=== PATIENT | male | born 1955 | race Two or more races ===

== ENCOUNTER 2024-01-18 02:37 | Emergency (ER) | payer MEDICARE, OTHER ==
[~2024-01-18] VITALS: Ht 175.3 cm; Wt 112.0 kg
[~2024-01-18 02:37] MED LIST: ASPI-1450 PO
[2024-01-18 02:44] VITALS: BP 140/86; PULSE 88; RESP 16; TEMP 98.3
[2024-01-18 03:04] LABS: COVID AG,FIA SOURCE NASAL SWAB
[2024-01-18 03:29] LABS: INFLUENZA TYPE A NEGATIVE FOR TYPE A (NEGATIVE); INFLUENZA TYPE B NEGATIVE FOR TYPE B (NEGATIVE); SARS-COV2 (COVID) ANTIGEN,FIA Negative (Negative)
[2024-01-18] MEDS ORDERED: AZIT250T9 PO (05:43)
[2024-01-18] MEDS ORDERED: BENZ-227 PO (05:43)
[2024-01-18] MEDS: DEXAMETHASONE 4 MG TABLET PO ONE (05:46)
== END 2024-01-18 06:13 | disposition home or self-care (01) ==
LOC: EMS 02:39
DX: J40 Bronchitis, not specified as acute or chronic (principal); R05.9 Cough, unspecified; I10 Essential (primary) hypertension; D68.9 Coagulation defect, unspecified; Z20.822 Contact with and (suspected) exposure to COVID-19
CPT/HCPCS: 99284; 71045; 87426; 87804; J8540

== ENCOUNTER 2024-05-11 04:29 | Emergency (ER) | payer MEDICARE ==
[~2024-05-11] VITALS: Ht 175.3 cm; Wt 99.1 kg
[~2024-05-11 04:29] MED LIST changes: +BENZ-227 PO
[2024-05-11 04:34] VITALS: TEMP 98.4
[2024-05-11 05:21] LABS: BASOPHILS % (AUTO) 1.3 % (0.0-2.0); EOSINOPHILS % (AUTO) 0.6 % (1.0-6.0); HEMATOCRIT 44.8 % (41-53); HEMOGLOBIN 14.7 g/dL (13.5-17.5); LYMPHOCYTES # (AUTO) 2.1 K/uL (1.0-4.8); LYMPHOCYTES % (AUTO) 17.8 % (22.0-44.0); MEAN CORPUSCULAR HEMOGLOBIN 27.6 pg (26.0-34.0); MEAN CORPUSCULAR HGB CONC 32.9 G/dL (31.0-37.0); MEAN CORPUSCULAR VOLUME 84 fL (80-100); MONOCYTES % (AUTO) 8.3 % (2.0-9.0); NEUTROPHILS # (AUTO) 8.7 K/uL (1.8-7.7); PLATELET COUNT (AUTO) 166 K/uL (150-450); RED BLOOD CELL COUNT(AUTO) 5.34 MIL/uL (4.50-5.90); RED CELL DISTRIBUTION WIDTH 13.8 % (11.5-14.5)
[2024-05-11 05:34] LABS: ANION GAP 10 mmol/L (8-16); CALCIUM, TOTAL 9.1 mg/dL (8.8-10.5); CARBON DIOXIDE 26 mmol/L (22-29); CHLORIDE 101 mmol/L (98-107); CREATININE 1.01 mg/dL (0.60-1.30); GLOMERULAR FILTR. RATE CALC > 60 mL/min (>60); GLUCOSE,RANDOM 127 mg/dL (70-110); LIPASE 30 U/L (16-77); POTASSIUM 3.8 mmol/L (3.5-5.1); SODIUM SERUM 136 mmol/L (136-145); UREA NITROGEN, BLOOD 11 mg/dL (7-18)
[2024-05-11] MEDS ORDERED: AMOX-457 PO (08:38)
[2024-05-11 08:40] VITALS: BP 155/89; PULSE 92; RESP 16
== END 2024-05-11 09:14 | disposition home or self-care (01) ==
LOC: EMS 04:32
DX: R19.7 Diarrhea, unspecified (principal); R10.31 Right lower quadrant pain; I10 Essential (primary) hypertension; Z98.890 Other specified postprocedural states
CPT/HCPCS: 74176; 80048; 83690; 85025; 99284

== ENCOUNTER 2025-08-08 03:02 | Emergency (ER) | payer MEDICARE ==
[~2025-08-08] VITALS: Ht 175.3 cm; Wt 90.9 kg
[~2025-08-08 03:02] MED LIST changes: +AMOX-457 PO
[2025-08-08 03:12] VITALS: BP 136/74; PULSE 110; RESP 18; TEMP 97.9; O2SAT 98
[2025-08-08] MEDS: KETOROLAC TROMETHAMINE 30 MG/ML VIAL IM ONE (04:28)
[2025-08-08] MEDS: ACETAMINOPHEN 500 MG TABLET PO ONE (04:28)
== END 2025-08-08 07:33 | disposition home or self-care (01) ==
LOC: EMS 03:06
DX: S46.912A Strain of unspecified muscle, fascia and tendon at shoulder and upper arm level, left arm, initial encounter (principal); M25.512 Pain in left shoulder; E11.9 Type 2 diabetes mellitus without complications; G89.29 Other chronic pain; I10 Essential (primary) hypertension; Z79.82 Long term (current) use of aspirin; Z87.19 Personal history of other diseases of the digestive system; Z79.899 Other long term (current) drug therapy; X50.1XXA Overexertion from prolonged static or awkward postures, initial encounter; Y93.89 Activity, other specified; Y92.89 Other specified places as the place of occurrence of the external cause; Y99.8 Other external cause status
CPT/HCPCS: 99284; 82962; 73030; 73060; 96372; J1885